=== PATIENT | female | born 1960 | race Caucasian/White ===

== ENCOUNTER 2019-08-26 13:46 | Outpatient (CLI) | payer BC | END 2019-08-26 13:47 | disposition home or self-care (01) | LOC: DTY/OP 13:46 | PROVIDERS: ATTEND Surgery | DX: E66.01 Morbid (severe) obesity due to excess calories (principal) | CPT/HCPCS: 97802 ==

== ENCOUNTER 2019-09-23 14:01 | Outpatient (CLI) | payer BC | END 2019-09-23 14:02 | disposition home or self-care (01) | LOC: DTY/OP 14:01 | PROVIDERS: ATTEND Surgery | DX: E66.01 Morbid (severe) obesity due to excess calories (principal) | CPT/HCPCS: 97802 ==

== ENCOUNTER 2019-11-04 13:59 | Outpatient (CLI) | payer BC | END 2019-11-04 14:00 | disposition home or self-care (01) | LOC: DTY/OP 13:59 | PROVIDERS: ATTEND Surgery | DX: E66.01 Morbid (severe) obesity due to excess calories (principal) | CPT/HCPCS: 97802 ==

== ENCOUNTER 2020-01-23 06:33 | Outpatient (CLI) | payer BC ==
[2020-01-23 17:20] LABS: #Basophils 0.1 thou/uL (0.0-0.2); #Eosinphils 0.1 thou/uL (0.0-0.7); #Lymphocytes 2.2 thou/uL (1.20-3.40); #Monocytes 0.5 thou/uL (0.11-0.59); #Neutrophils 4.5 thou/uL (1.40-6.50); %Basophils 0.9 % (0.0-1.0); %Eosinophils 1.7 % (0.0-10.0); %Monocytes 6.5 % (0.0-10.0); %Neutrophils 60.9 % (42.0-75.0); Hemoglobin 13.1 g/dL (12.0-16.0); Mean Corpuscular HGB CONC 34.3 g/dL (32.0-36.0); Mean Corpuscular Hemoglobin 30.5 pg (27.0-31.0); Mean Corpuscular Volume 89.1 fL (78.0-98.0); Platelet Count 197 thou/uL (130-400); RBC Distribution Width 11.7 % (11.5-14.5); White Blood Cell (WBC) Count 7.4 thou/uL (4.8-10.8)
--- NOTE | 2020-01-23 17:29 | RAD ---
PA AND LATERAL CHEST: History: Pre-operative evaluation. FINDINGS: The heart size is normal. The aorta is tortuous. The lungs are well expanded without focal areas of c onsolidation, pneumothoraces, or pleural effusions. IMPRESSION: No radiographic evidence of acute cardiopulmonary process. POS: OFF
[2020-01-23 17:44] LABS: ALT (SGPT) 20 U/L (8-55); AST (SGOT) 19 U/L (5-34); Albumin 4.2 g/dL (3.4-4.8); Alkaline Phosphatase 75 U/L (40-110); Anion Gap 13 mmol/L (10-20); BUN (Urea Nitrogen) 25 mg/dL (9.8-20.1); Bilirubin, Total 0.3 mg/dL (0.2-1.2); Calc. Creatinine Clearance 0 mL/min (70-130); Calcium 9.5 mg/dL (7.8-10.44); Carbon Dioxide 23 mmol/L (23-31); Chloride 104 mmol/L (98-107); Estimated GFR-MDRD 61; Glucose 96 mg/dL (80-115); Potassium 3.8 mmol/L (3.5-5.1); Protein, Total 7.2 g/dL (6.0-8.3); Sodium 136 mmol/L (136-145)
[2020-01-23 21:41] LABS: Hemoglobin A1c 5.5 % (4.0-6.0)
--- NOTE | 2020-01-26 08:21 | EKG ---
Test Reason : Blood Pressure : / mmHG Vent. Rate : 076 BPM Atrial Rate : 076 BPM P-R Int : 172 ms QRS Dur : 084 ms QT Int : 402 ms P-R-T Axes : -01 109 056 degrees QTc Int : 452 ms Normal sinus rhythm Rightward axis Possible Anterior infarct , age undetermined Abnormal ECG No previous ECGs available Confirmed by DR. Janak KIM ([id number]) on 01/26/2020 8:20:56 AM Referred By: ROBSON Confirmed By:DR. Janak KIM
== END 2020-01-23 06:34 | disposition home or self-care (01) ==
LOC: LABBT 06:33
PROVIDERS: ATTEND Surgery
DX: Z01.818 Encounter for other preprocedural examination (principal); E66.01 Morbid (severe) obesity due to excess calories
CPT/HCPCS: 71046; 80053; 83036; 85025; 93005; 93010

== ENCOUNTER 2020-01-23 16:15 | Inpatient (IN) | payer BC ==
[2020-01-23 17:09] VITALS: BMI 39.5
[2020-01-26] MEDS ORDERED: Heparin 5,000 UNITS/ML VIAL ONE (06:26)
[2020-01-26] MEDS ORDERED: Fentanyl 100 MCG/2 ML VIAL ONE ×2 (06:50→09:46)
[2020-01-26] MEDS ORDERED: Bupivacaine 0.25% HCL 30 ML VIAL ONE (06:51)
[2020-01-26] MEDS ORDERED: Lidocaine 1% w/Epinephrine 1:100K 20 ML VIAL ONE (06:51)
[2020-01-26] MEDS ORDERED: Sodium Chloride 0.9% 0 ML ONE (07:25)
[2020-01-26] MEDS ORDERED: hydrALAZINE 20 MG/ML VIAL SLOW IVP PRN (09:18)
[2020-01-26] MEDS ORDERED: Dextrose 50% Abboject 50 ML SYRINGE SLOW IVP PRN (09:18)
[2020-01-26] MEDS ORDERED: Ondansetron PF 4 MG/2 ML Vial IVP PRN ×3 (09:18→10:41)
[2020-01-26] MEDS ORDERED: Promethazine HCl 25 MG/ML VIAL IM PRN ×4 (09:18→10:41)
[2020-01-26] MEDS ORDERED: Dextrose 5% in Water 1,000 ML IV PRN (09:18)
[2020-01-26] MEDS ORDERED: diphenhydrAMINE 50 MG/ML VIAL IVP PRN ×3 (09:18→10:41)
[2020-01-26] MEDS ORDERED: Hydrocodone-Acetamin 15 ML UDCUP PO PRN (09:18)
[2020-01-26] MEDS ORDERED: Promethazine HCl 25 MG/ML VIAL SLOW IVP PRN (09:31)
[2020-01-26] MEDS ORDERED: PACU-Morphine 4MG/ML VIAL SLOW IVP PRN (09:31)
[2020-01-26] MEDS ORDERED: Ondansetron HCl/PF 4 MG/2 ML Vial IVP PRN (09:31)
[2020-01-26] MEDS ORDERED: Promethazine HCl 25 MG/ML VIAL ONE (09:45)
[2020-01-26] MEDS ORDERED: Sodium Chloride 0.9% (PF) 10 ML VIAL FS PRN (10:11)
[2020-01-26] MEDS ORDERED: fentaNYL Citrate/PF 2,000 MCG in Sodium Chloride 0.9% 60 ML IV PRN ×2 (10:18→10:41)
[2020-01-26] MEDS ORDERED: diphenhydrAMINE 50 MG/ML VIAL IM PRN ×2 (10:18→10:41)
[2020-01-26] MEDS ORDERED: Naloxone HCl 0.4 mg/ml Vial IV PRN ×2 (10:18→10:41)
[2020-01-26] MEDS ORDERED: Zolpidem Tartrate 5 MG TAB PO PRN ×2 (10:18→10:41)
[2020-01-26] MEDS ORDERED: Ketorolac Tromethamine 30 MG/ML VIAL IVP PRN (10:18)
[2020-01-26] MEDS ORDERED: diphenhydrAMINE 25 MG CAP PO PRN ×2 (10:18→10:41)
[2020-01-26] MEDS ORDERED: Ketorolac Tromethamine 30 MG/ML VIAL ONE (10:19)
[2020-01-26] MEDS ORDERED: Lidocaine 1% PF 5 ML VIAL ONE (10:19)
[2020-01-26] MEDS ORDERED: Glycopyrrolate 0.2 MG/ML 5 ML SYRINGE ONE (10:19)
[2020-01-26] MEDS ORDERED: PROPOFOL 200 MG/20 ML VIAL ONE (10:19)
[2020-01-26] MEDS ORDERED: Dexamethasone 20 MG/5 ML VIAL ONE (10:19)
[2020-01-26] MEDS ORDERED: PHENYLEPHRINE-NS 100 MCG/ML 10 ML SYRINGE ONE (10:19)
[2020-01-26] MEDS ORDERED: EPHEDRINE 25 MG/5 ML SYRINGE ONE (10:19)
[2020-01-26] MEDS ORDERED: Rocuronium Bromide 10 MG/ML (10ML VIAL) ONE (10:19)
[2020-01-26] MEDS ORDERED: Ondansetron PF 4 MG/2 ML Vial ONE (10:19)
[2020-01-26] MEDS ORDERED: Communication Order-Pharmacy FS SCH ×2 (10:30→10:45)
[2020-01-26] MEDS ORDERED: Ketorolac Tromethamine 30 MG/ML VIAL IVP SCH (12:00)
[2020-01-26] MEDS: D5 1/2 NS w/20 mEq KCL 1,000 ML IV SCH ×3 (12:48→20:55)
[2020-01-26] MEDS: CEFAZOLIN 2 GM in Premix Bag 1 BAG IVPB SCH ×2 (14:11→22:02)
--- NOTE | 2020-01-26 14:55 | OP ---
DATE OF PROCEDURE: 01/26/2020 PREOPERATIVE DIAGNOSIS: Morbid obesity. PROCEDURES PERFORMED: Laparoscopic sleeve gastrectomy, laparoscopic cholecystectomy, esophagogastroduodenoscopy. INDICATIONS: The patient is a 59-year-old female, who has been overweight for many years, attempted multiple weight loss programs without success. She also has been having severe episodic right upper quadrant pain. She had an ultrasound showing cholelithiasis and she really wanted the gallbladder removed. FINDINGS: A 38-[place] bougie was used. Her gallbladder was very inflamed and acutely distended with thickened gallbladder wall and inflammatory adhesions, small cystic duct. DESCRIPTION OF PROCEDURE: After informed consent was obtained, the patient was taken to the operating room, given general endotracheal anesthesia, placed in supine position. Abdomen was prepped and draped in usual fashion. Local anesthesia infiltrated subcutaneously and deep and a 12 mm incision was performed approximately 8 inches above the xiphoid slightly to the left. Veress needle inserted. Drop test performed. Pneumoperitoneum was created to a volume of 2 L of carbon dioxide. Utilizing a bladeless 12 mm trocar and 0-degree laparoscope, direct visual entry in abdominal cavity was performed. Pneumoperitoneum was then created to a pressure of 15 mmHg and the patient placed in steep reverse Trendelenburg position. Aguilar liver retractor inserted. Left lobe of the liver retracted superiorly. The pylorus was identified. A 12-mm port placed on the right beneath it and two 12s placed in left subcostal. The omentum was taken off the greater curvature 5 cm from the pylorus utilizing the LigaSure. Short gastrics divided with LigaSure. Left crura defined with LigaSure. A 38-[place]vian bougie inserted, directed into the antrum. The linear 60 mm green load stapler used to divide the antrum to the bougie, gold load along the bougie, and a series of blues through the angle of His. At this point, I looked over at the gallbladder. It was encased in omentum, hard, full of stones. I was able to reflect some of that omentum and it was acutely inflamed, necessitating removal. Two more 5 mm ports were placed in right subcostal. The gallbladder was grasped and advanced superiorly. The peritoneum was dissected to expose the cystic duct, artery, and critical view. These were triply ligated with hemoclips and divided. The gallbladder was removed from its fossa utilizing electrocautery, it was placed in endosac. Then, intraoperative endoscopy was performed. The video endoscope was inserted under direct vision and advanced into the sleeve. The staple line inspected. There was no bleeding. Staple line then tested by inflating the new stomach with pressurized air under water, there was no air leak. Stomach decompressed. Scope removed. The remnant stomach removed from the abdomen through the left lateral port site. The gallbladder was removed through the left lateral port site. These were both sent to Pathology for further analysis. Hemostasis assured. The fascia was closed with 0 Vicryl suture and the GraNee needle. As the trocars were removed, on the right lateral side, there was some bleeding. Again, another GraNee needle, 0 Vicryl suture used to close this fascia and control that bleeding. Now, hemostasis was assured, trocars and retractors removed, and the skin closed with interrupted 4-0 Rapide. Dermabond applied. The patient tolerated the procedure well and transferred to Recovery in good condition. Sponge and needle count verified correct x2. Job ID: [id number]
[2020-01-27 05:23] LABS: #Lymphocytes 1.2 thou/uL (1.20-3.40); #Monocytes 0.6 thou/uL (0.11-0.59); #Neutrophils 8.7 thou/uL (1.40-6.50); %Basophils 0.1 % (0.0-1.0); %Lymphocytes 11.1 % (21.0-51.0); %Monocytes 5.9 % (0.0-10.0); %Neutrophils 82.9 % (42.0-75.0); Hemoglobin 11.8 g/dL (12.0-16.0); Mean Corpuscular HGB CONC 31.6 g/dL (32.0-36.0); Mean Corpuscular Hemoglobin 28.7 pg (27.0-31.0); Mean Corpuscular Volume 90.9 fL (78.0-98.0); Mean Platelet Volume 8.9 fL (7.4-10.4); Platelet Count 165 thou/uL (130-400); RBC Distribution Width 11.8 % (11.5-14.5); White Blood Cell (WBC) Count 10.5 thou/uL (4.8-10.8)
[2020-01-27] MEDS: D5 1/2 NS w/20 mEq KCL 1,000 ML IV SCH (05:31)
[2020-01-27 05:43] LABS: ALT (SGPT) 50 U/L (8-55); AST (SGOT) 52 U/L (5-34); Albumin 3.8 g/dL (3.4-4.8); Alkaline Phosphatase 66 U/L (40-110); Anion Gap 9 mmol/L (10-20); BUN (Urea Nitrogen) 8 mg/dL (9.8-20.1); Bilirubin, Direct 0.1 mg/dL (0.1-0.3); Bilirubin, Total 0.3 mg/dL (0.2-1.2); Calc. Creatinine Clearance 123 mL/min (70-130); Calcium 8.5 mg/dL (7.8-10.44); Carbon Dioxide 22 mmol/L (23-31); Chloride 108 mmol/L (98-107); Estimated GFR-MDRD 69; Glucose 148 mg/dL (80-115); Potassium 4.3 mmol/L (3.5-5.1); Protein, Total 6.6 g/dL (6.0-8.3); Sodium 135 mmol/L (136-145)
[2020-01-27] MEDS ORDERED: Enoxaparin Sodium 40 MG/0.4 ML SYRINGE SC SCH (06:00)
--- NOTE | 2020-01-27 08:19 | RAD ---
[facility] HISTORY: Bariatric surgery. FINDINGS: Single column contrast evaluation performed. Postoperative changes of the stomach consisten t with recent gastric sleep procedure. Fluoroscopy time 0.3 minutes. There is no evidence of obstruction or leak. Immediate passage of contrast into the duodenum.
[2020-01-27] MEDS ORDERED: Pantoprazole 40 MG VIAL IVP SCH (09:00)
[2020-01-27] MEDS ORDERED: GASTROGRAFIN 30 ML BOT ONE (14:14)
[2020-01-27 15:10] VITALS: BP 144/83; TEMP 98.6
[2020-01-28] MEDS ORDERED: Enoxaparin Sodium 40 MG/0.4 ML SYRINGE SC SCH (09:00)
--- NOTE | 2020-01-29 22:16 | DIS ---
DATE OF ADMISSION: 01/26/2020 DATE OF DISCHARGE: 01/27/2020 DISCHARGE DIAGNOSES: Morbid obesity, acute cholecystitis. PROCEDURES DURING ADMISSION: Laparoscopic sleeve gastrectomy, laparoscopic cholecystectomy, and intraoperative esophagogastroscopy. HOSPITAL COURSE: The patient was admitted, taken to the operating room. She underwent a sleeve gastrectomy. She was found to have a very inflamed gallbladder, so a laparoscopic cholecystectomy was also performed at the same time. EGD was fine. Postoperatively, she had a Gastrografin swallow that was fine. She was started on liquids. She is tolerating well. She is discharged home on hydrocodone and Zofran. She will follow up with me in 2 weeks. Job ID: [id number]
== END 2020-01-27 16:45 | disposition home or self-care (01) | DRG 620 ==
LOC: SURG A 01-26 06:12 → SURG B 01-26 11:34
PROVIDERS: ADMIT Surgery; ATTEND Surgery
PROC: 0DB64Z3 Excision of Stomach, Percutaneous Endoscopic Approach, Vertical (ICD-10-PCS; principal; 2020-01-26)
PROC: 0FT44ZZ Resection of Gallbladder, Percutaneous Endoscopic Approach (ICD-10-PCS; 2020-01-26)
PROC: 0DJ08ZZ Inspection of Upper Intestinal Tract, Via Natural or Artificial Opening Endoscopic (ICD-10-PCS; 2020-01-26)
DX: E66.01 Morbid (severe) obesity due to excess calories (principal); K80.00 Calculus of gallbladder with acute cholecystitis without obstruction; Z68.41 Body mass index [BMI] 40.0-44.9, adult; Z79.899 Other long term (current) drug therapy
CPT/HCPCS: 36415; 71046; 74240; 80048; 80053; 80076; 83036; 85025; 88304; 88307; 88312; 93005; 94760; C9113; J0690; J1100; J1644; J1650; J1885; J2001; J2405; J2550; J2704; J3010; S0020